=== PATIENT | male | born 1980 | race Caucasian/White ===

== ENCOUNTER 2023-05-02 14:07 | Emergency (ER) | payer OTHER, SELFPAY ==
[2023-05-02 14:16] VITALS: BP 126/63; PULSE 62; RESP 16; TEMP 37.3; O2SAT 98; BMI 31.1
[2023-05-02 14:28] VITALS: O2SAT 98
--- NOTE | 2023-05-02 14:28 | PC.NURSE ---
COVID+ on Fri
--- NOTE | 2023-05-02 14:28 | PC.NURSE ---
no wheezing or coughing heard
--- NOTE | 2023-05-02 14:50 | ED.GENADUL1 ---
HPI - General Adult General Chief complaint: Upper Respiratory Infection Stated complaint: COVID LIKE SYMPTOMS Time Seen by Provider: 05/02/23 14:23 Source: patient Mode of arrival: walk-in History of Present Illness HPI narrative: I did not see this patient. He registered and after having his COVID test taken he did not want to stay to be seen by a physician. Related Data Allergies Allergy/AdvReac Type Severity Reaction Status Date / Time No Known Drug Allergies Allergy Verified 05/02/23 14:19 Exam Constitutional Vital Signs, click to edit/add: Last Vital Signs Temp 99.1 F 05/02/23 14:16 Pulse 62 05/02/23 14:16 Resp 16 05/02/23 14:16 BP 126/63 05/02/23 14:16 Pulse Ox 98 05/02/23 14:28 O2 Del Method Room Air 05/02/23 14:28 Course Vital Signs Vital signs: Vital Signs Temperature 99.1 F 05/02/23 14:16 Pulse Rate 62 05/02/23 14:16 Respiratory Rate 16 05/02/23 14:16 Blood Pressure 126/63 05/02/23 14:16 Pulse Oximetry 98 05/02/23 14:16 Oxygen Delivery Method Room Air 05/02/23 14:16 Temperature 99.1 F 05/02/23 14:16 Pulse Rate 62 05/02/23 14:16 Respiratory Rate 16 05/02/23 14:16 Blood Pressure 126/63 05/02/23 14:16 Pulse Oximetry 98 05/02/23 14:28 Oxygen Delivery Method Room Air 05/02/23 14:28 Discharge Plan Discharge Stand Alone Forms: Portal Instructions Chief Complaint: Upper Respiratory Infection Clinical Impression: Upper respiratory infection Patient Disposition: Home, Self-Care Referrals: KACEY GRAVES [Primary Care Provider] - 1 week
[2023-05-02 15:01] LABS: SARS-CoV-2 Ag NEGATIVE (NEGATIVE)
== END 2023-05-02 15:05 | disposition home or self-care (01) ==
PROVIDERS: Emergency Provider Emergency Medicine
DX: J06.9 Acute upper respiratory infection, unspecified (principal); Z20.822 Contact with and (suspected) exposure to COVID-19
CPT/HCPCS: 87811; 99283